=== PATIENT | male | born 1955 | race Caucasian/White ===

== ENCOUNTER 2016-12-19 11:05 | Observation (INO) | payer SELFPAY ==
[~2016-12-19] VITALS: Ht 182.9 cm; Wt 95.2 kg
[2016-12-19 11:43] LABS: EOSINOPHIL (%) 1.4 % (0-5); EOSINOPHIL COUNT 0.1 K/uL (0-0.3); HEMATOCRIT 36.8 % (38.0-50.0); IMMATURE GRANULOCYTE (%) 0.3 % (0.0-0.7); INSTRUMENT ABS NEUTROPHIL CT 4.5 K/uL; LYMPHOCYTE COUNT 0.6 K/uL (1.0-2.8); MCH 25.3 PG (29.0-34.0); MCHC 31.3 G/DL (30.0-36.0); MCV 80.9 FL (86-99); MEAN PLAT.VOLUME 9.6 uM^3 (9.0-12.4); MONOCYTE COUNT 0.5 K/uL (0-0.8); NEUTROPHIL (%) 78.6 % (45-76); NEUTROPHIL COUNT 4.5 K/uL (1.8-6.4); PLATELET COUNT 121 K/uL (156-360); RBC DIS.WIDTH-CV 14.3 % (11.8-14.6); RBC DIS.WIDTH-SD 41.8 % (39-53); RED BLOOD COUNT 4.55 M/uL (4.00-5.50); WHITE BLOOD COUNT 5.7 K/uL (4.1-10.2)
[2016-12-19 11:51] LABS: AMYLASE 51 IU/L (1-118); CHLORIDE 104 mEq/L (99-109); POTASSIUM 4.6 mEq/L (3.7-5.4); SODIUM 138 mEq/L (136-147)
[2016-12-19 11:53] LABS: GLUCOSE 92 mg/dL (70-99)
[2016-12-19 11:54] LABS: ANION GAP 10 MEQ/L (2-14)
[2016-12-19 11:56] LABS: SERUM ETHYL ALCOHOL < 10 mg/dL
[2016-12-19 11:58] LABS: UREA NITROGEN (BUN) 9 mg/dL (9-23)
[2016-12-19 12:00] LABS: GFR ESTIMATE (CALCULATED) > 59 mL/min/; LIPASE 18 U/L (1.0-51.0)
[2016-12-19 14:05] LABS: ADD MIUA? NO; BILIRUBIN NEGATIVE; BLOOD NEGATIVE; COLOR YELLOW ((YELLOW)); GLUCOSE (STRIP) NEGATIVE; KETONES NEGATIVE; LEUKOCYTES NEGATIVE; NITRITE NEGATIVE; PROTEIN (STRIP) NEGATIVE; UCUL ADDED? NO; UROBILINOGEN 0.2 MG/DL (0.2-1.0)
[2016-12-19 14:14] LABS: SPECIFIC GRAVITY 1.066 (1.000-1.030)
[2016-12-19 14:16] LABS: AMPHETAMINE NEGATIVE (500 ng/mL); BARBITURATES NEGATIVE (200 ng/mL); BENZODIAZEPINES PRESUMPTIVE POSITIVE (150 ng/mL); COCAINE PRESUMPTIVE POSITIVE (150 ng/mL); INTERNAL CONTROLS VALID? YES; METHADONE NEGATIVE (200 ng/mL); METHAMPHETAMINE NEGATIVE (500 ng/mL); OPIATES (MORPHINE) NEGATIVE (100 ng/mL); OXYCODONE PRESUMPTIVE POSITIVE (100 ng/mL); PHENCYCLIDINE NEGATIVE (25 ng/mL); PROPOXYPHENE NEGATIVE (300 ng/mL); THC CANNABINOIDS NEGATIVE (50 ng/mL); TRICYCLIC ANTIDEPRESSANTS NEGATIVE (300 ng/mL)
[2016-12-19 14:17] LABS: ADD MEDTOX COMMENT Y
[2016-12-19 14:39] LABS: BENZODIAZEPINES, URINE SCREEN POSITIVE (200 ng/mL)
[2016-12-19 18:12] VITALS: BP 144/75
[2016-12-19 18:13] LABS: CREATINE KINASE 66 IU/L (1-294); TOTAL CK 66 IU/L (1-294)
[2016-12-19 18:19] LABS: CK-MB 1.1 ng/mL (0.0-4.9)
[2016-12-20 00:01] VITALS: BP 125/71
[2016-12-20 06:16] LABS: ANION GAP 6 MEQ/L (2-14); CHLORIDE 106 MEQ/L (99-109); GFR ESTIMATE (CALCULATED) > 59 mL/min/; GLUCOSE 100 mg/dL (70-99); POTASSIUM 4.6 MEQ/L (3.7-5.4); SAMPLE HEMOLYSIS CHECK 0; SAMPLE ICTERIC CHECK 0; SAMPLE LIPEMIA CHECK 0; SODIUM 140 MEQ/L (136-147); UREA NITROGEN (BUN) 15 mg/dL (9-23)
[2016-12-20 07:46] VITALS: BP 129/79
[2016-12-20 09:10] LABS: HEMATOCRIT 30.9 % (38.0-50.0); MCH 26.5 PG (29.0-34.0); MCHC 31.7 G/DL (30.0-36.0); MCV 83.5 FL (86-99); MEAN PLAT.VOLUME 10.2 uM^3 (9.0-12.4); PLATELET COUNT 104 K/uL (156-360); RBC DIS.WIDTH-CV 14.6 % (11.8-14.6); RBC DIS.WIDTH-SD 44.4 % (39-53); WHITE BLOOD COUNT 3.2 K/uL (4.1-10.2)
== END 2016-12-20 10:57 | disposition left against medical advice (07) ==
LOC: EME → EDOF 15:44 → ENRESERV 15:48 → 3EAST 18:02
PROVIDERS: Emergency Medicine; Internal Medicine; Physician Assistant
DX: M54.5 Low back pain (principal); M79.606 Pain in leg, unspecified; R53.1 Weakness; Z76.5 Malingerer [conscious simulation]; F17.210 Nicotine dependence, cigarettes, uncomplicated; F14.10 Cocaine abuse, uncomplicated; F11.10 Opioid abuse, uncomplicated; I77.1 Stricture of artery; N28.1 Cyst of kidney, acquired; M51.36 Other intervertebral disc degeneration, lumbar region; K44.9 Diaphragmatic hernia without obstruction or gangrene; R91.8 Other nonspecific abnormal finding of lung field; Z88.0 Allergy status to penicillin; Z88.5 Allergy status to narcotic agent; W17.89XA Other fall from one level to another, initial encounter
CPT/HCPCS: 71010; 71260; 72125; 72129; 72132; 74177; 80048; 81003; 82150; 82550; 82550 91; 82553; 83690; 84999; 85025; 85027; 86850; 86900; 86901; G0378; G0480; J1650; J2405; J3010; J7030